=== PATIENT | male | born 1950 ===

== ENCOUNTER → 2021-09-15 10:51 | Outpatient (BNVA) | payer MEDICARE, SELFPAY | PROVIDERS: Family Provider Family Medicine; PCP Student in an Organized Health Care Education/Training Program; Visit Provider Urology | DX: R97.20 Elevated prostate specific antigen [PSA] (principal) | CPT/HCPCS: 84153 ==

== ENCOUNTER → 2021-09-22 10:02 | Outpatient (BNVA) | payer MEDICARE, SELFPAY | PROVIDERS: Family Provider Family Medicine; PCP Student in an Organized Health Care Education/Training Program; Visit Provider Urology | DX: R97.20 Elevated prostate specific antigen [PSA] (principal) | CPT/HCPCS: 81003; 99203 ==

== ENCOUNTER 2023-03-15 08:26 | Inpatient (IN) | payer MEDICARE, SELFPAY ==
[2023-03-15] VITALS (10 sets, daily range): BP systolic 121–164; BP diastolic 64–70; PULSE 56–64; RESP 15–18; TEMP 36.4–37.3; O2SAT 90–100; BMI 26.4; BMI 27.5
--- NOTE | 2023-03-15 08:34 | XR_ITS ---
WS: [id number] XR hip LT 2-3V wo/w pel* [id number] REASON FOR EXAM: FALL AND PAIN FINDINGS: Transcervical fracture of the femoral neck with minimal comminution. Mild cephalic displacement of th e femoral neck and shaft. Moderate osteoarthritis of the left hip. Superior and inferior pubic rami are intact. IMPRESSION: Transcervical fracture of the left hip as above.
--- NOTE | 2023-03-15 09:25 | ECG_ITS ---
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 Measurements Intervals Aubrey Rate: 58 P: 53 MS: 183 QRS: -9 QRSD: 114 T: 47 QT: 383 QTc: 376 Interpretive Statements SINUS BRADYCARDIA MODERATE INTRAVENTRICULAR CONDUCTION DELAY [110+ ms QRS DURATION] No previous ECG available for comparison Electronically Signed On 03-15-2023 19:52:06 MANAGER BUDGET by Majo Concecpion M.D. [id number]
--- NOTE | 2023-03-15 09:26 | ED_ITS ---
HPI - Extremity Problem 2 General: Chief complaint: ER Hold Stated complaint: FALL Time Seen by Provider: 03/15/23 08:30 Source: patient Mode of arrival: EMS History of Present Illness: 72-year-old male presents emergency room was walking slipped and fell on the ice complaining of left hip pain obvious deformity with shortening and external rotation. Brought in by EMS denies any other injury with the fall. MD Complaint: joint pain Onset (ago): minute(s) Pain Consistency: constant Location: left and lower extremity (Hip) Quality: sharp Radiation: distal Relieving factors: immobilization Exacerbating factors: range of motion and palpation Associated symptoms: Deny arthralgias, chest pain, fever(s), myalgias, rash or short of breath Review of Systems 2 Const: Denies: fever(s) or chills Card: Denies: chest pain Resp: Denies: dyspnea GI: Denies: abdominal pain : Denies: dysuria, urinary frequency or urinary urgency Musc: Reports: joint pain; Denies: neck pain or back pain Skin/Breast: Denies: rash PFSH ED 2 PFSH: Medical History Closed left hip fracture Coronary artery disease Tobacco dependency Hyperlipidemia Hypertension Surgical History Hx of cholecystectomy H/O heart artery stent Family History Father , AT AGE 75 Heart disease Mother , AT AGE 59 Cancer Social History Smoking and tobacco/nicotine status: current every day tobacco/nicotine user Alcohol intake: current Alcohol intake frequency: holidays/special occasions only Marital status: Current occupational status: employed Physical Exam 2 Const: GENERAL APPEARANCE: cooperative and comfortable O RIENTATION/CONSCIOUSNESS: Yes awake, Yes oriented to person, Yes oriented to place and Yes oriented to time HENMT: COMMON NORMALS: normocephalic, atraumatic and hearing grossly normal bilaterally HEAD & SCALP: normocephalic and atraumatic Resp: COMMON NORMALS: normal respiratory effort, No retractions, No use of accessory muscles and clear to auscultation bilaterally AUSCULTATION: clear to auscultation bilaterally Cardio: COMMON NORMALS: regular rate, regular rhythm and No murmurs present (Cardio) RATE: regular rate RHYTHM: regular rhythm GI: COMMON NORMALS: Soft to palpation and No hepatosplenomegaly present A USCULTATION: Yes normoactive bowel sounds PALPATION: Yes Soft to palpation, No Tenderness to palpation present (GI), No Guarding due to palpation present (GI) and Yes No hepatosplenomegaly present Extremity: COMMON NORMALS: normal to inspection, capillary refill normal, no clubbing, cyanosis or edema, no calf tenderness and no pedal edema LEFT LOWER EXTREMITY: Yes hip joint (External rotation and shortening) Left hip: Yes other Neuro: SENSORIUM/ORIENTATION: Yes oriented to person, Yes oriented to place and Yes oriented to time Skin: COMMON NORMALS: no rashes or lesions noted GENERAL SKIN EXAM: no rashes or lesions noted Course 2 Vital Signs: Vital signs: Vital Signs Temperature 99.4 F 03/18/23 12:00 Pulse Rate 71 03/18/23 12:00 Respiratory Rate 17 03/18/23 12:44 Blood Pressure 119/70 03/18/23 12:00 Pulse Oximetry 95 03/18/23 12:00 Oxygen Delivery Me thod Room Air 03/18/23 12:00 Oxygen Flow Rate 3 03/16/23 09:19 MDM - Extremity (Nontraumatic) Medical Decision Making Transcervical left hip fracture noted on x-ray. Patient will be admitted, orthopedic surgery consult hospitalist will be admitting. Pain medications given orders written initial preop labs ordered Medical Records I reviewed the patient's medical records. Lab Data I reviewed the patient's lab results. 03/18/23 03:30 03/18/23 03:30 Laboratory Results WBC 12.84 10^3/uL (3.29-11.43) H 03/15/23 09:34 RBC 5.02 10^6/uL (3.85-5.65) 03/15/23 09:34 Hgb 15.80 g/dL (11.27-16.99) 03/15/23 09:34 Hct 46.6 % (37-53) 03/15/23 09:34 MCV 92.8 fl (82-101) 03/15/23 09:34 MCH 31.5 pg (27-33) 03/15/23 09:34 MCHC 33.9 g/dL (30-55) 03/15/23 09:34 RDW 12.6 % (12.1-15.1) 03/15/23 09:34 Plt Count 219 10^3/cmm (157-399) 03/15/23 09:34 MPV 9.9 fL (7.4-10.4) 03/15/23 09:34 Neut % (Auto) 86.1 % 03/15/23 09:34 Lymph % (Auto) 8.5 % 03/15/23 09:34 [place] % (Auto) 4.5 % 03/15/23 09:34 Eos % (Auto) 0.2 % 03/15/23 09:34 Baso % (Auto) 0.3 % 03/15/23 09:34 Neut # (Auto) 11.05 10^3/uL (1.8-7.7) H 03/15/23 09:34 Lymph # (Auto) 1.1 10^3/uL (0.8-4.8) 03/15/23 09:34 [place] # (Auto) 0.6 10^3/uL (0.2-0.9) 03/15/23 09:34 Eos # (Auto) 0.0 10^3/uL (0.0-0.8) 03/15/23 09:34 Baso # (Auto) 0.0 10^3/uL (0.0-0.1) 03/15/23 09:34 Nucleated RBC % (auto) 0 % 03/15/23 09:34 Nucleated RBCs # 0.0 /100WBC 03/15/23 09:34 PT 12.90 SECONDS (12.1-14.9) 03/15/23 09:34 INR 0.94 (0.8-1.2) 03/15/23 09:34 APTT 31.8 SECONDS (23.9-36.7) 03/15/23 09:34 Sodium 138 mmol/L (136-145) 03/15/23 09:34 Potassium 4.2 mmol/L (3.5-5.1) 03/15/23 09:34 Chloride 104 mmol/L (98-107) 03/15/23 09:34 Carbon Dioxide 25 mmol/L (22-29) 03/15/23 09:34 Anion Gap 13.2 (5-19) 03/15/23 09:34 BUN 12 mg/dL (8-23) 03/15/23 09:34 Creatinine 1.4 mg/dL (0.7-1.2) H 03/15/23 09:34 GFR Calculation Not Reportable 03/15/23 09:34 Glucose 112 mg/dL (65-115) 03/15/23 09:34 Calculated Osmolality 287 mOsm/kg (285-295) 03/15/23 09:34 Calcium 9.1 mg/dL (8.5-10.5) 03/15/23 09:34 Total Bilirubin 0.5 mg/dL (0.15-1.2) 03/15/23 09:34 AST 16 U/L (0-40) 03/15/23 09:34 ALT 12 U/L (0-41) 03/15/23 09:34 Alkaline Phosphatase 88 U/L (40-130) 03/15/23 09:34 Total Protein 6.9 g/dL (6.6-8.7) 03/15/23 09:34 Albumin 3.8 g/dL (3.5-5.2) 03/15/23 09:34 Globulin 3.1 g/dL (1.3-4.6) 03/15/23 09:34 Urine Color Yellow (Yellow) 03/15/23 11:57 Urine Appearance Clear (CLEAR) 03/15/23 11:57 Urine pH 7 (5-7) 03/15/23 11:57 Ur Specific [place] 1.010 (1.005-1.030) 03/15/23 11:57 Urine Protein Neg (Negative) 03/15/23 11:57 Urine Glucose (UA) Norm (Normal) 03/15/23 11:57 Urine Ketones Negative (Negative) 03/15/23 11:57 Urine Blood Neg (Negative) 03/15/23 11:57 Urine Nitrate Negative (Negative) 03/15/23 11:57 Urine Bilirubin Neg (Negative) 03/15/23 11:57 Urine Urobilinogen Norm mg/dL (Negative) 03/15/23 11:57 Ur Leukocyte Esterase Negative (Negative) 03/15/23 11:57 All radiology interpretation(s) finalized by discharge Discharge Plan Discharge Patient Disposition: Admitted As Inpatient Admit Provider: Patrick Hernández Clinical Impression: Fracture of hip, Coronary artery disease Condition: Stable Discharge Diet: Cardiac Discharge Activity: Increase activity as tolerated Coding Level of Care Code ED Wood Pattern Maker for Ismael Mukherjee
--- NOTE | 2023-03-15 09:26 | XR_ITS ---
WS: [id number] XR chest 1V portable [id number] REASON FOR EXAM: dyspnea/cough FINDINGS: Mild tortuosity and ectasia of the thoracic aorta. Normal heart size. Calcified granulomatous disease in both hemithoraces. No active pulmonary parenchymal or pleural disease. Mild to moderate changes of degenerative spondylosis in the mid and lower thoracic spine. IMPRESSION: No acute chest abnormality.
[2023-03-15 09:49] LABS: Basophils % 0.3 %; Eosinophils % 0.2 %; Hematocrit 46.6 % (37-53); Lymphocytes # 1.1 10^3/uL (0.8-4.8); Lymphocytes % 8.5 %; Mean Corpuscular HGB Conc 33.9 g/dL (30-55); Mean Corpuscular Hemoglobin 31.5 pg (27-33); Mean Corpuscular Volume 92.8 fl (82-101); Mean Platelet Volume 9.9 fL (7.4-10.4); Monocytes # 0.6 10^3/uL (0.2-0.9); Monocytes % 4.5 %; Neutrophils # 11.05 10^3/uL (1.8-7.7); Neutrophils % 86.1 %; Nucleated Red Blood Cells % 0 %; Platelet Count 219 10^3/cmm (157-399); Red Blood Count 5.02 10^6/uL (3.85-5.65); Red Cell Distribution Width 12.6 % (12.1-15.1); White Blood Count 12.84 10^3/uL (3.29-11.43)
[2023-03-15 10:00] LABS: INR 0.94 (0.8-1.2)
[2023-03-15 10:01] LABS: Partial Thromboplastin Time 31.8 SECONDS (23.9-36.7)
[2023-03-15 10:08] LABS: Alanine Aminotransferase 12 U/L (0-41); Albumin Level 3.8 g/dL (3.5-5.2); Alkaline Phosphatase 88 U/L (40-130); Anion Gap 13.2 (5-19); Aspartate Amino Transferase 16 U/L (0-40); Blood Urea Nitrogen 12 mg/dL (8-23); Calcium 9.1 mg/dL (8.5-10.5); Carbon Dioxide 25 mmol/L (22-29); Chloride 104 mmol/L (98-107); Globulin 3.1 g/dL (1.3-4.6); Glucose 112 mg/dL (65-115); Osmolality Calculated 287 mOsm/kg (285-295); Potassium 4.2 mmol/L (3.5-5.1); Sodium 138 mmol/L (136-145); Total Bilirubin 0.5 mg/dL (0.15-1.2); Total Protein 6.9 g/dL (6.6-8.7)
[2023-03-15] MEDS: ondansetron 2 mg/ML SDV 2 mL 4 MG IVP (10:10)
[2023-03-15] MEDS: morphine 4 mg/mL SDV 1 mL IVP ×3 (10:10→19:43)
[2023-03-15] MEDS: D5-NS 0.45% + KCL 20 mEq 20 MEQ/1,000 ML BAG 100 MEQ IV ×2 (10:44→19:44)
--- NOTE | 2023-03-15 11:45 | P.HP_ITS ---
Providers/Chief Complaint 2 Admitting Physician: Patrick Hernández MD hospitalist Primary Care Provider: Arabella Lira NP Chief Complaint: FALL History of Present Illness Gideon Reyes is a 72 year old male from [facility] he reports he was on his way to [facility] when he slipped and fell on some ice. He denies any other significant injuries other than his hip, on the left side. He reports he tried to stand, and was able to briefly but then fell on the ice again. He was unable to stand after that. He reports no headache, nausea, neck pain, or back pain. He reports the hip is bothering him quite a bit. He would like something to drink. He denies any history of chest discomfort with exertion, and can do over 2 METS of activity without difficulty. He reports no prior anesthesia difficulties, or bleeding disorders. Review of Systems 2 Card: Denies: chest pain Resp: Denies: dyspnea GI: Denies: abdominal pain, hematochezia or melena Medications/Allergies Home Medications Medication Instructions Recorded Confirmed Last Taken Type lisinopril 10 mg tablet 10 mg PO DAILY 08/25/21 03/15/23 03/15/23 History meclizine 25 mg tablet 25 mg PO DAILY PRN Muscle Spasm 08/25/21 03/15/23 03/15/23 History simvastatin 40 mg tablet 40 mg PO QPM 08/25/21 03/15/23 03/14/23 History aspirin 81 mg tablet,delayed 81 mg PO DAILY 09/22/21 03/15/23 03/14/23 History release cholecalciferol (vitamin D3) 10 10 mcg PO DAILY 09/22/21 03/15/23 03/15/23 History mcg (400 unit) capsule vitamin B complex (B 1 tab PO DAILY 09/22/21 03/15/23 03/15/23 History Complex-Vitamin B12 tablet) oxybutynin chloride 5 mg tablet 5 mg PO TID 03/15/23 03/15/23 03/15/23 History Allergies Allergy/AdvReac Type Severity Reaction Status Date / Time No Known Allergies Allergy Unverified 09/22/21 10:15 PFSH Acute 2 PFSH: Medical History (Updated 03/15/23 @ 11:52 by Patrick Hernández MD) Coronary artery disease Tobacco dependency Hyperlipidemia Hypertension Surgical History Hx of cholecystectomy H/O heart artery stent Family History Father , AT AGE 75 Heart disease Mother , AT AGE 59 Cancer Social History Smoking and tobacco/nicotine status: current every day tobacco/nicotine user Alcohol intake: current Alcohol intake frequency: holidays/special occasions only Marital status: Current occupational status: employed Vitals/I&O/Wt Last Vital Signs Temp 98.4 F 03/15/23 08:29 Pulse 64 03/15/23 08:29 Resp 15 03/15/23 10:10 BP 164/66 03/15/23 08:29 Pulse Ox 100 03/15/23 10:10 O2 Del Method Room Air 03/15/23 08:29 Weight last 48 hrs Weight 90.718 kg Physical Exam 2 Narrative: General exam is a white male, conversant, pleasant, reporting pain HEENT: Atraumatic normocephalic. Oropharynx clear Neck is supple no lymphadenopathy thyromegaly Cardiovascular regular rate and rhythm with a 2 or 6 systolic murmur heard best at the left midsternal border Lungs clear Abdomen is soft nontender with positive bowel sounds. Small scars from laparoscopic cholecystectomy are noted exams deferred Extremities no cyanosis clubbing or edema, left leg is externally rotated and shortened. Distal cap refill intact. Skin no rash Neuro no obvious focal deficits. Data 03/15/23 09:34 03/15/23 09:34 Other Labs: LFTs are normal Urine is ordered but not done Chest x-ray shows no infiltrate, normal cardiac silhouette. I reviewed this personally. Hip x-ray demonstrates a left hip with a femoral neck fracture. I reviewed this personally. EKG which I reviewed demonstrates normal sinus rhythm, left axis deviation, and is otherwise without concern. A&P Assessment and plan (1) Closed left hip fracture: Bedrest initially N.p.o. after midnight for possible surgery tomorrow Orthopedic consultation Pain control (2) Coronary artery disease: Patient has history of coronary artery disease with intervention with stenting in the distant past Continue statin, aspirin (3) Tobacco dependency: Encourage abstaining from tobacco. Plan Hypertension. Hold his lisinopril as given DICKSON inhibitors in the perioperative period is associate with hypotension following surgery. Other medical problems as outlined in past medical history Full code. Lovenox and SCDs for DVT prophylaxis Attestations 2 Medical Necessity Statement*: Will need greater than 2 midnight stay for evaluation and treatment of left hip fracture, requiring surgery Diagnoses Closed left hip fracture S72.002A Coronary artery disease I25.10 Tobacco dependency F17.200 Time Spent (min) 47
[2023-03-15 12:06] LABS: Add Urine Microscopic? NO; Charge for UA Resulting for Rev
[2023-03-15 12:20] LABS: Bilirubin Urine Neg (Negative); Blood Urine Neg (Negative); Glucose Urine UA Norm (Normal); Ketones Urine Negative (Negative); Leukocyte Esterase Urine Negative (Negative); Nitrate Urine Negative (Negative); Protein Urine Neg (Negative); Urine Appearance Clear (CLEAR); Urine Color Yellow (Yellow); Urobilinogen Urine Norm (Negative); pH Urine 7 (5-7)
--- NOTE | 2023-03-15 12:57 | P.CONIM_ITS ---
Providers/Reason For Consult 2 Consulting Physician/Specialty*: Hospitalist Reason for Consult*: Left femoral neck fracture Attending Physician: Patrick Hernández MD Primary Care Provider: Arabella Lira NP History of Present Illness History of Present Illness Mane Reyes is a 72 year old male seen this morning and sustained a left femoral neck fracture. Patient had pain in the hip Review of Systems 2 Card: Denies: chest pain Resp: Denies: dyspnea GI: Denies: abdominal pain, hematochezia or melena Medications/Allergies Home Medications Medication Instructions Recorded Confirmed Last Taken Type lisinopril 10 mg tablet 10 mg PO DAILY 08/25/21 03/15/23 03/15/23 History meclizine 25 mg tablet 25 mg PO DAILY PRN Muscle Spasm 08/25/21 03/15/23 03/15/23 History simvastatin 40 mg tablet 40 mg PO QPM 08/25/21 03/15/23 03/14/23 History aspirin 81 mg tablet,delayed 81 mg PO DAILY 09/22/21 03/15/23 03/14/23 History release cholecalciferol (vitamin D3) 10 10 mcg PO DAILY 09/22/21 03/15/23 03/15/23 History mcg (400 unit) capsule vitamin B complex (B 1 tab PO DAILY 09/22/21 03/15/23 03/15/23 History Complex-Vitamin B12 tablet) oxybutynin chloride 5 mg tablet 5 mg PO TID 03/15/23 03/15/23 03/15/23 History Allergies Allergy/AdvReac Type Severity Reaction Status Date / Time No Known Allergies Allergy Unverified 09/22/21 10:15 Current Medications Generic Name Dose Route Start Last Admin Trade Name Freq PRN Reason Stop Dose Admin Potassium Chloride/Dextrose/Sod Cl 20 meq in 1,000 mls @ 100 mls/hr 03/15/23 09:47 03/15/23 10:44 D5-Ns 0.45% + Kcl 20 Meq IV 100 mls/hr .Q10H NIRAV Administration PFSH Acute 2 PFSH: Medical History (Updated 03/15/23 @ 12:58 by Rafita Laws DO) Coronary artery disease Tobacco dependency Hyperlipidemia Hypertension Surgical History Hx of cholecystectomy H/O heart artery stent Family History Father , AT AGE 75 Heart disease Mother , AT AGE 59 Cancer Social History Smoking and tobacco/nicotine status: current every day tobacco/nicotine user Alcohol intake: current Alcohol intake frequency: holidays/special occasions only Marital status: Current occupational status: employed Vitals/I&O/Wt Last Vital Signs Temp 98.4 F 03/15/23 08:29 Pulse 56 L 03/15/23 12:10 Resp 15 03/15/23 10:10 BP 150/64 03/15/23 12:10 Pulse Ox 96 03/15/23 12:10 O2 Del Method Room Air 03/15/23 12:10 Weight last 48 hrs Weight 200 lb Physical Exam 2 Narrative: Patient's left leg is shortened and externally rotated. Leg is neurovascular intact. Data 03/15/23 09:34 03/15/23 09:34 A&P Assessment and plan (1) Closed left hip fracture: Patient has a left closed hip fracture at the femoral neck. At this time we will plan to do a left hip hemiarthroplasty first in the morning. I had an open and honest discussion with the patient about the risks, benefits and alternatives to both surgical and nonsurgical treatment. The patient verbalized understanding of the inherent unpredictability associated with surgery. Risk of surgery were discussed including, but not limited to, infection, bleeding, temporary and permanent nerve damage, continued pain, stiffness, incomplete healing, need for revision surgery, blood clot and other complications. The patient verbalized understanding that there is spine is elective in nature and if they find any of these risks to be unacceptable then they should choose not to have the surgery. The patient verbalized understanding of these risks and elected to proceed with the surgery. Qualifiers: Encounter type: initial encounter Qualified Code(s): S72.002A - Fracture of unspecified part of neck of left femur, initial encounter for closed fracture Coding Level of Care Code Acute Code for Chg Fwd Diagnoses Closed fracture of left hip, initial encounter S72.002A Encounter type: initial encounter
[2023-03-15] MEDS: ceFAZolin 2,000 MG in sodium chloride 0.9% (plus) 50 ML 100 MG IV (14:24)
[2023-03-15] MEDS: enoxaparin 40 mg/0.4 mL Syringe SUBCUT (14:24)
[2023-03-15] MEDS: oxyCODONE 5 mg IR Tab/Cap PO ×2 (14:24→23:06)
[2023-03-15] MEDS: atorvastatin 40 mg Tablet PO (17:04)
[2023-03-16] VITALS (17 sets, daily range): BP systolic 100–144; BP diastolic 53–69; PULSE 62–87; RESP 10–23; TEMP 36.6–37.6; O2SAT 90–96
[2023-03-16] MEDS: D5-NS 0.45% + KCL 20 mEq 20 MEQ/1,000 ML BAG 100 MEQ IV (04:55)
[2023-03-16 05:29] LABS: Basophils % 0.2 %; Eosinophils % 0.4 %; Hematocrit 42.5 % (37-53); Lymphocytes # 1.2 10^3/uL (0.8-4.8); Lymphocytes % 11.9 %; Mean Corpuscular HGB Conc 33.6 g/dL (30-55); Mean Corpuscular Hemoglobin 31.2 pg (27-33); Mean Corpuscular Volume 92.8 fl (82-101); Mean Platelet Volume 10.3 fL (7.4-10.4); Monocytes # 0.8 10^3/uL (0.2-0.9); Monocytes % 7.9 %; Neutrophils # 8.17 10^3/uL (1.8-7.7); Neutrophils % 79.4 %; Nucleated Red Blood Cells % 0 %; Platelet Count 183 10^3/cmm (157-399); Red Blood Count 4.58 10^6/uL (3.85-5.65); Red Cell Distribution Width 12.5 % (12.1-15.1); White Blood Count 10.28 10^3/uL (3.29-11.43)
[2023-03-16 05:49] LABS: Anion Gap 13.4 (5-19); Blood Urea Nitrogen 10 mg/dL (8-23); Calcium 8.7 mg/dL (8.5-10.5); Carbon Dioxide 23 mmol/L (22-29); Chloride 106 mmol/L (98-107); Glucose 125 mg/dL (65-115); Osmolality Calculated 287 mOsm/kg (285-295); Potassium 4.4 mmol/L (3.5-5.1); Sodium 138 mmol/L (136-145)
--- NOTE | 2023-03-16 06:26 | W.PM.OPSUD ---
Surgery/Procedure H&P Update DATE OF PROCEDURE: March 16, 2023 DATE H&P PERFORMED: 03/15/23 H&P UPDATE INFORMATION: I have reviewed H&P completed within last 30 days, I have examined patient prior to procedure and No changes to prior documentation PREOP DIAGNOSIS: Hip fracture PLANNED PROCEDURE: Operation Date: 03/16/23 07:00 Proposed Procedures p Hemiarthroplasty Hip(Left) - Rafita Laws DO
[2023-03-16] MEDS: sodium chloride 0.9% 1,000 ML 30 ML IV (06:39)
[2023-03-16] MEDS: ceFAZolin 2,000 MG in sodium chloride 0.9% (plus) 50 ML 100 MG IV ×3 (06:58→22:28)
--- NOTE | 2023-03-16 07:05 | P.ANESASSM_ITS ---
Pre-Anesthetic Assessment Height/Weight: Height 1.85 m Weight 96.434 kg Temp Pulse Resp BP Pulse Ox O2 Del Method 99.6 F 69 17 144/69 90 Room Air 03/16/23 06:25 03/16/23 06:25 03/16/23 06:25 03/16/23 06:25 03/16/23 06:25 03/16/23 06:25 Preop Diagnosis: Hip fracture Operation Date: 03/16/23 07:00 Proposed Procedures p Hemiarthroplasty Hip(Left) - Rafita Laws DO Familial anesthetic complications: none Was Beta Cody taken within 24 hours: N/A Was Clonidine taken within 24 hours: N/A Last intake: Intake Last Liquid Date 03/15/23 Last Liquid Time 23:00 Last Solid Date 03/15/23 Social Tobacco and No alcohol Exam alert, oriented x 3 and regular rate & rhythm Airway Submandibular: within normal limits Cervical ROM: within normal limits Mallampati: Class II Dentition: chipped Pulmonary Chronic Obstructive Pulmonary Disease CV/HEM Coronary Artery Disease and Hypertension Anesthetic Plan ASA status: 3 Anesthesia: General Medications/Allergies Home Medications Medication Instructions Recorded Confirmed Last Taken Type lisinopril 10 mg tablet 10 mg PO DAILY 08/25/21 03/15/23 03/15/23 History meclizine 25 mg tablet 25 mg PO DAILY PRN Muscle Spasm 08/25/21 03/15/23 03/15/23 History simvastatin 40 mg tablet 40 mg PO QPM 08/25/21 03/15/23 03/14/23 History aspirin 81 mg tablet,delayed 81 mg PO DAILY 09/22/21 03/15/23 03/14/23 History release cholecalciferol (vitamin D3) 10 10 mcg PO DAILY 09/22/21 03/15/23 03/15/23 History mcg (400 unit) capsule vitamin B complex (B 1 tab PO DAILY 09/22/21 03/15/23 03/15/23 History Complex-Vitamin B12 tablet) oxybutynin chloride 5 mg tablet 5 mg PO TID 03/15/23 03/15/23 03/15/23 History Allergies Allergy/AdvReac Type Severity Reaction Status Date / Time No Known Allergies Allergy Unverified 09/22/21 10:15 Current Medications Generic Name Dose Route Start Last Admin Trade Name Freq PRN Reason Stop Dose Admin Atorvastatin Calcium 40 mg 03/15/23 18:00 03/15/23 17:04 Atorvastatin 40 Mg Tablet PO 40 mg QPM NIRAV Administration Potassium Chloride/Dextrose/Sod Cl 20 meq in 1,000 mls @ 100 mls/hr 03/15/23 09:47 03/16/23 04:55 D5-Ns 0.45% + Kcl 20 Meq IV 100 mls/hr .Q10H NIRAV Administration Sodium Chloride 1,000 mls @ 30 mls/hr 03/16/23 06:30 03/16/23 06:39 Sodium Chloride 0.9% IV 03/17/23 06:29 30 mls/hr .Q24H NIRAV Administration Morphine Sulfate 4 mg 03/15/23 09:47 03/15/23 19:43 Morphine 4 Mg/Ml Sdv 1 Ml IVP 4 mg Q4H PRN Administration SEVERE PAIN Oxycodone HCl 5 mg 03/15/23 11:53 03/15/23 23:06 Oxycodone 5 Mg Ir Tab/Cap PO 5 mg Q6H PRN Administration SEVERE PAIN PFSH Anesthesia Medical History (Updated 03/15/23 @ 12:58 by Rafita Laws DO) Coronary artery disease Tobacco dependency Hyperlipidemia Hypertension Surgical History Hx of cholecystectomy H/O heart artery stent Family History Father , AT AGE 75 Heart disease Mother , AT AGE 59 Cancer Social History Smoking and tobacco/nicotine status: current every day tobacco/nicotine user Alcohol intake: current Alcohol intake frequency: holidays/special occasions only Marital status: Current occupational status: employed Data Anesthesia 03/16/23 04:51 03/16/23 04:51 Short CBC 03/15/23 03/16/23 Range/Units 09:34 04:51 WBC 12.84 H 10.28 (3.29-11.43) 10^3/uL Hgb 15.80 14.30 (11.27-16.99) g/dL Hct 46.6 42.5 (37-53) % MCV 92.8 92.8 (82-101) fl Plt Count 219 183 (157-399) 10^3/cmm Neut % (Auto) 86.1 79.4 % Neut # (Auto) 11.05 H 8.17 H (1.8-7.7) 10^3/uL BMP 03/15/23 03/16/23 09:34 04:51 Sodium 138 138 Potassium 4.2 4.4 Chloride 104 106 Carbon Dioxide 25 23 BUN 12 10 Creatinine 1.4 H 1.2 Glucose 112 125 H Calcium 9.1 8.7 Liver Function 03/15/23 Range/Units 09:34 Total Bilirubin 0.5 (0.15-1.2) mg/dL AST 16 (0-40) U/L ALT 12 (0-41) U/L Alkaline Phosphatase 88 (40-130) U/L Albumin 3.8 (3.5-5.2) g/dL Urine 03/15/23 Range/Units 11:57 Urine Color Yellow (Yellow) Urine Appearance Clear (CLEAR) Urine pH 7 (5-7) Ur Specific [place] 1.010 (1.005-1.030) Urine Protein Neg (Negative) Urine Glucose (UA) Norm (Normal) Urine Ketones Negative (Negative) Urine Nitrate Negative (Negative) Urine Bilirubin Neg (Negative) Ur Leukocyte Esterase Negative (Negative) Coags 03/15/23 09:34 PT 12.90 INR 0.94 APTT 31.8 Cardiac Studies: 2 No Data to Display
[2023-03-16] MEDS: vancomycin 1,000 MG SDV 1000 MG INTRA-ARTI (07:48)
--- NOTE | 2023-03-16 08:30 | XR_ITS ---
WS: [id number] XR hip LT 1V wo/w pel [id number] REASON FOR EXAM: post op FINDINGS: Total left hip arthroplasty. The components of the prosthesis are intact and in proper position and alignment. IMPRESSION: Total left hip arthroplasty without abnormality.
--- NOTE | 2023-03-16 08:32 | P.OP_ITS ---
Operative Report Date of procedure: March 16, 2023 Pre-op diagnosis: Left femoral neck fracture Post-op diagnosis: same Procedure done: Left hip hemiarthroplasty Surgeon: Rafita Laws DO Estimated blood loss (mL): 50 Procedure: Left hip hemiarthroplasty Patient brought the operative suite after undergoing anesthesia placed in the lateral decubitus position. All areas impingement well-padded. Patient's prepped draped normal sterile fashion. Skin incision made over the left hip. IT band was cut cerebellar retractors were placed hip was rotated externally the abductors and capsule were taken down together anteriorly femoral neck was then identified and cut fingerbreadth above the lesser trochanter. The femoral head was then removed. It measured attention was then brought to the femur. A box closing machine operator was used to open up the canal superiorly. The canal finder was used fol lowed by lateralizer. The canal was broached to 7 size 7 stem was then inserted. Negative for neck length and the appropriate size head. This was then reduced. Overall directions wounds were irrigated abduction. With the capsule with Ethibond suture. IT band was closed with 0 Vicryl skin was closed with 2-0 Vicryl and bill. Sterile dressings were applied patient was transferred to this PACU in stable condition.
--- NOTE | 2023-03-16 10:18 | P.PN_ITS ---
Subjective 2 Subjective: Mane is directly postoperative. There were no complications with surgery. He denies any complaints. Currently his pain is controlled. Medications: Reviewed: Yes Vitals/I&O/Wt Last Vital Signs Temp 98.5 F 03/16/23 09:19 Pulse 69 03/16/23 09:19 Resp 15 03/16/23 09:19 BP 123/68 03/16/23 09:19 Pulse Ox 92 03/16/23 09:19 O2 Del Method Nasal Cannula 03/16/23 09:19 O2 Flow Rate 3 03/16/23 09:19 03/15/23 03/16/23 03/16/23 22:59 06:59 14:59 Intake Total 950 / 950 918.333 / 8915.695 7782 / 1050 Output Total 1150 / 1150 Balance -200 / -200 918.333 / 402.096 1754 / 1050 Weight last 48 hrs Weight 96.434 kg Weight 94.665 kg Weight 90.718 kg Physical Exam 2 Narrative: General exam no distress Neck is supple no lymphadenopathy thyromegaly Cardiovascular regular rate and rhythm with a 2 or 6 systolic murmur heard best at the left midsternal border Lungs clear Abdomen is soft nontender with positive bowel sounds. Small scars from laparoscopic cholecystectomy are noted exams Patterson noted Extremities no cyanosis clubbing or edema, left leg with dressing clean and dry Urinary Catheter Management: Patterson: Cath Placed During This Visit: yes Urinary Catheter Date of Insertion: 03/16/23 Urinary Catheter Time of Insertion: 07:15 Data 03/16/23 04:51 03/16/23 04:51 A&P Assessment and plan (1) Closed left hip fracture: Directly postoperative PT and OT consult Appreciate orthopedic intervention Pain control Qualifiers: Encounter type: initial encounter Qualified Code(s): S72.002A - Fracture of unspecified part of neck of left femur, initial encounter for closed fracture (2) Coronary artery disease: Patient has history of coronary artery disease with intervention with stenting in the distant past Continue statin, aspirin (3) Tobacco dependency: Encourage abstaining from tobacco. Plan Hypertension. Hold his lisinopril as given DICKSON inhibitors in the perioperative period is associate with hypotension following surgery. Other medical problems as outlined in past medical history Full code. Eliquis for DVT prophylaxis Attestations 2 Medical Necessity Statement*: Needs continued hospitalization for close monitoring, directly postoperative from hip fracture surgery. Diagnoses Closed fracture of left hip, initial encounter S72.002A Encounter type: initial encounter Coronary artery disease I25.10 Tobacco dependency F17.200 Time Spent (min) 24
--- NOTE | 2023-03-16 14:16 | ANE.PACU2 ---
Inpatient post-anesthesia follow up: Airway intact: Yes Vital signs: Temperature 97.9 F Pulse Rate 67 Respiratory Rate 14 Blood Pressure 124/65 Pulse Oximetry 90 Oxygen Delivery Me thod Nasal Cannula Oxygen Flow Rate 3 Fraction of Inspir ed Oxygen Hydration adequate: Yes Nausea and vomiting: No Pain level: 3 Mental status: Baseline
[2023-03-16] MEDS: oxyCODONE 5 mg IR Tab/Cap PO (15:02)
[2023-03-16] MEDS: atorvastatin 40 mg Tablet PO (17:44)
[2023-03-16] MEDS: apixaban 5 mg Tablet 2.5 MG PO (20:32)
[2023-03-17] VITALS (9 sets, daily range): BP systolic 116–149; BP diastolic 61–74; PULSE 68–85; RESP 15–18; TEMP 36.6–37.4; O2SAT 90–98
[2023-03-17 03:48] LABS: Basophils % 0.2 %; Eosinophils # 0.1 10^3/uL (0.0-0.8); Eosinophils % 0.4 %; Hematocrit 39.8 % (37-53); Lymphocytes # 1.2 10^3/uL (0.8-4.8); Lymphocytes % 7.7 %; Mean Corpuscular HGB Conc 34.2 g/dL (30-55); Mean Corpuscular Hemoglobin 31.6 pg (27-33); Mean Corpuscular Volume 92.3 fl (82-101); Mean Platelet Volume 10.1 fL (7.4-10.4); Monocytes # 1.2 10^3/uL (0.2-0.9); Monocytes % 7.7 %; Neutrophils # 13.41 10^3/uL (1.8-7.7); Neutrophils % 83.6 %; Nucleated Red Blood Cells % 0 %; Platelet Count 197 10^3/cmm (157-399); Red Blood Count 4.31 10^6/uL (3.85-5.65); Red Cell Distribution Width 12.4 % (12.1-15.1); White Blood Count 16.04 10^3/uL (3.29-11.43)
[2023-03-17 04:13] LABS: Anion Gap 14.3 (5-19); Blood Urea Nitrogen 15 mg/dL (8-23); Carbon Dioxide 22 mmol/L (22-29); Chloride 104 mmol/L (98-107); Glucose 122 mg/dL (65-115); Osmolality Calculated 284 mOsm/kg (285-295); Potassium 4.3 mmol/L (3.5-5.1); Sodium 136 mmol/L (136-145)
[2023-03-17] MEDS: oxyCODONE 5 mg IR Tab/Cap PO ×2 (05:49→14:00)
[2023-03-17] MEDS: ceFAZolin 2,000 MG in sodium chloride 0.9% (plus) 50 ML 100 MG IV (06:00)
--- NOTE | 2023-03-17 09:44 | P.PN_ITS ---
Subjective 2 Subjective: Patient sitting up at the bedside has very been walking doing well tells me he has insurance clearance to go to a assisted Vitals/I&O/Wt Last Vital Signs Temp 97.9 F 03/17/23 08:00 Pulse 73 03/17/23 08:00 Resp 16 03/17/23 08:00 BP 128/64 03/17/23 08:00 Pulse Ox 97 03/17/23 08:00 O2 Del Method Room Air 03/17/23 04:00 O2 Flow Rate 3 03/16/23 09:19 03/16/23 03/17/23 03/17/23 22:59 06:59 14:59 Intake Total 1290 / 2680 100 / 2780 240 / 240 Output Total 450 / 450 1350 / 1800 Balance 840 / 2230 -1250 / 980 240 / 240 Weight last 48 hrs Weight 220 lb 8 oz Weight 212 lb 9.6 oz Weight 208 lb 11.2 oz Physical Exam 2 Narrative: Patient is sitting at the bedside minimal pain wound clean dry and intact Urinary Catheter Management: Patterson: Cath Placed During This Visit: yes, but has since been removed by the nurse Reason for Continuing Indwelling Catheter: Decision to DC Catheter Urinary Catheter Date of Insertion: 03/16/23 Urinary Catheter Time of Insertion: 07:15 Date Urinary Catheter Removed: 03/17/23 Time Urinary Catheter Discontinued: 05:55 Data 03/17/23 03:32 03/17/23 03:32 A&P Assessment and plan (1) Encounter for postoperative care: Patient is postop day 1 for hemiarthroplasty Weight-bear as tolerated Discharge planning DVT prophylaxis with aspirin Attestations 2 Medical Necessity Statement*: Per primary service Coding Level of Care Code Acute Code for Chg Fwd Diagnoses Encounter for postoperative care Z48.89
--- NOTE | 2023-03-17 09:48 | P.PN_ITS ---
Subjective 2 Subjective: Mane reports he is doing okay. Pain is under control. Believes he needs to go to a nursing facility for rehabilitation. Medications: Reviewed: Yes Vitals/I&O/Wt Last Vital Signs Temp 97.9 F 03/17/23 08:00 Pulse 73 03/17/23 08:00 Resp 16 03/17/23 08:00 BP 128/64 03/17/23 08:00 Pulse Ox 97 03/17/23 08:00 O2 Del Method Room Air 03/17/23 04:00 O2 Flow Rate 3 03/16/23 09:19 03/16/23 03/17/23 03/17/23 22:59 06:59 14:59 Intake Total 1290 / 2680 100 / 2780 240 / 240 Output Total 450 / 450 1350 / 1800 Balance 840 / 2230 -1250 / 980 240 / 240 Weight last 48 hrs Weight 100.017 kg Weight 96.434 kg Weight 94.665 kg Physical Exam 2 Narrative: General exam no distress Neck is supple no lymphadenopathy thyromegaly Cardiovascular regular rate and rhythm with a 2 or 6 systolic murmur heard best at the left midsternal border Lungs clear Abdomen is soft nontender with positive bowel sounds. Patterson has been discontinued Extremities no cyanosis clubbing or edema, left leg with dressing clean and dry Urinary Catheter Management: Patterson: Cath Placed During This Visit: yes, but has since been removed by the nurse Reason for Continuing Indwelling Catheter: Decision to DC Catheter Urinary Catheter Date of Insertion: 03/16/23 Urinary Catheter Time of Insertion: 07:15 Date Urinary Catheter Removed: 03/17/23 Time Urinary Catheter Discontinued: 05:55 Data 03/17/23 03:32 03/17/23 03:32 A&P Assessment and plan (1) Closed left hip fracture: Postoperative day #1 status post ORIF left hip PT and OT consult Appreciate orthopedic intervention Pain control Slight increase in creatinine. Start low-dose fluids, stop anti-inflammatories, recheck lab tomorrow Qualifiers: Encounter type: initial encounter Qualified Code(s): S72.002A - Fracture of unspecified part of neck of left femur, initial encounter for closed fracture (2) Coronary artery disease: Patient has history of coronary artery disease with intervention with stenting in the distant past Continue statin, aspirin (3) Tobacco dependency: Encourage abstaining from tobacco. Plan Hypertension. Hold his lisinopril as given DICKSON inhibitors in the perioperative period is associate with hypotension following surgery. Other medical problems as outlined in past medical history Full code. Eliquis for DVT prophylaxis Attestations 2 Medical Necessity Statement*: Needs continued hospital stay for close follow-up following hip fracture repair Diagnoses Closed fracture of left hip, initial encounter S72.002A Encounter type: initial encounter Coronary artery disease I25.10 Tobacco dependency F17.200 Time Spent (min) 24
[2023-03-17] MEDS: apixaban 5 mg Tablet 2.5 MG PO ×2 (10:51→20:05)
[2023-03-17] MEDS: aspirin 81 mg EC Tablet PO (10:51)
[2023-03-17] MEDS: sodium chloride 0.9% 1,000 ML 50 ML IV (10:52)
[2023-03-17] MEDS: atorvastatin 40 mg Tablet PO (17:19)
[2023-03-18] VITALS (7 sets, daily range): BP systolic 113–135; BP diastolic 62–72; PULSE 71–85; RESP 16–18; TEMP 36.4–37.4; O2SAT 92–96
[2023-03-18 03:57] LABS: Basophils % 0.4 %; Eosinophils # 0.1 10^3/uL (0.0-0.8); Eosinophils % 0.6 %; Hematocrit 36.2 % (37-53); Lymphocytes # 1.5 10^3/uL (0.8-4.8); Lymphocytes % 13.3 %; Mean Corpuscular HGB Conc 34.3 g/dL (30-55); Mean Corpuscular Hemoglobin 31.5 pg (27-33); Mean Corpuscular Volume 91.9 fl (82-101); Mean Platelet Volume 10.5 fL (7.4-10.4); Monocytes # 1.1 10^3/uL (0.2-0.9); Monocytes % 9.3 %; Neutrophils # 8.61 10^3/uL (1.8-7.7); Neutrophils % 75.8 %; Nucleated Red Blood Cells % 0 %; Platelet Count 186 10^3/cmm (157-399); Red Blood Count 3.94 10^6/uL (3.85-5.65); Red Cell Distribution Width 12.5 % (12.1-15.1); White Blood Count 11.35 10^3/uL (3.29-11.43)
[2023-03-18 04:27] LABS: Anion Gap 13.9 (5-19); Blood Urea Nitrogen 20 mg/dL (8-23); Calcium 8.5 mg/dL (8.5-10.5); Carbon Dioxide 23 mmol/L (22-29); Chloride 103 mmol/L (98-107); Glucose 106 mg/dL (65-115); Osmolality Calculated 285 mOsm/kg (285-295); Potassium 3.9 mmol/L (3.5-5.1); Sodium 136 mmol/L (136-145)
[2023-03-18] MEDS: oxyCODONE 5 mg IR Tab/Cap PO ×2 (06:13→12:44)
--- NOTE | 2023-03-18 06:49 | P.PN_ITS ---
Subjective 2 Subjective: Patient controlled doing well. Stated that he is going to correction. Vitals/I&O/Wt Last Vital Signs Temp 97.6 F 03/18/23 04:00 Pulse 77 03/18/23 04:00 Resp 16 03/18/23 06:13 BP 132/72 03/18/23 04:00 Pulse Ox 92 03/18/23 04:00 O2 Del Method Room Air 03/18/23 04:00 O2 Flow Rate 3 03/16/23 09:19 03/17/23 03/17/23 03/18/23 14:59 22:59 06:59 Intake Total 480 / 480 Output Total 500 / 500 200 / 700 Balance 480 / 480 -500 / -20 -200 / -220 Weight last 48 hrs Weight 220 lb 4 oz Weight 220 lb 8 oz Physical Exam 2 Narrative: Sitting up bedside wound clean dry intact Urinary Catheter Management: Patterson: Cath Placed During This Visit: yes, but has since been removed by the nurse Reason for Continuing Indwelling Catheter: Decision to DC Catheter Urinary Catheter Date of Insertion: 03/16/23 Urinary Catheter Time of Insertion: 07:15 Date Urinary Catheter Removed: 03/17/23 Time Urinary Catheter Discontinued: 05:55 Data 03/18/23 03:30 03/18/23 03:30 A&P Assessment and plan (1) Closed left hip fracture: Status post hip hemiarthroplasty Okay to discharge from orthopedic standpoint Follow-up in clinic in 2 weeks. Qualifiers: Encounter type: initial encounter Qualified Code(s): S72.002A - Fracture of unspecified part of neck of left femur, initial encounter for closed fracture Attestations 2 Medical Necessity Statement*: Per primary service Coding Level of Care Code Acute Code for Chg Fwd Diagnoses Closed fracture of left hip, initial encounter S72.002A Encounter type: initial encounter
--- NOTE | 2023-03-18 09:08 | PC.SOCIAL ---
IMM Update pg 2 of IMM updated and reviewed w/ patient. Copy provided and copy dated, initialed and placed in chart.
[2023-03-18] MEDS: apixaban 5 mg Tablet 2.5 MG PO (09:36)
[2023-03-18] MEDS: aspirin 81 mg EC Tablet PO (09:36)
[2023-03-18] MEDS: sodium chloride 0.9% 1,000 ML 50 ML IV (09:38)
--- NOTE | 2023-03-18 12:14 | PM.DCS ---
Discharge Providers Date of Admission: 03/15/23 12:18 Date of Discharge: March 18, 2023 Attending Provider at Admission: Patrick Hernández MD Attending Provider at Discharge: Patrick Hernández MD Primary Care Provider: Arabella Lira NP Diagnoses at Discharge Discharge Diagnosis (1) Closed left hip fracture: Status: Acute Qualifiers: Encounter type: initial encounter Qualified Code(s): S72.002A - Fracture of unspecified part of neck of left femur, initial encounter for closed fracture Reason for Visit Reason for Visit: FALL Hospital Course Hospital Course Mane is a 72-year-old white male who presented after mechanical fall to the emergency department with a hip fracture, on the left. He underwent surgery on the March 16, without complications. He was monitored closely in recovery and did quite well, being ready for discharge to skilled care on March 18. Discharge hemoglobin 12.4. Patient was given opportunity to ask questions and agreed with the plan. Physical Exam Narrative: General exam no distress Neck is supple Cardiovascular regular rate and rhythm Lungs clear Abdomen soft Extremities no sinus clubbing edema, left hip clean and dry. Urinary Catheter Management: Patterson: Cath Placed During This Visit: yes, but has since been removed by the nurse Reason for Continuing Indwelling Catheter: Decision to DC Catheter Urinary Catheter Date of Insertion: 03/16/23 Urinary Catheter Time of Insertion: 07:15 Date Urinary Catheter Removed: 03/17/23 Time Urinary Catheter Discontinued: 05:55 Discharge Data Studies Completed and Pending Completed Studies During Hospitalization Category Date Time Status XR chest 1V portable [id number] Stat Exams 03/15/23 09:26 Completed XR hip LT 1V wo/w pel [id number] Routine Exams 03/16/23 08:30 Completed XR hip LT 2-3V wo/w pel* [id number] Stat Exams 03/15/23 08:34 Completed Pending at discharge Category Date Time Status COVID [SARS Covid-2 Antigen] Routine Lab 03/18/23 11:55 Received Laboratory Results WBC 11.35 10^3/uL (3.29-11.43) 03/18/23 03:30 RBC 3.94 10^6/uL (3.85-5.65) 03/18/23 03:30 Hgb 12.40 g/dL (11.27-16.99) 03/18/23 03:30 Hct 36.2 % (37-53) L 03/18/23 03:30 MCV 91.9 fl (82-101) 03/18/23 03:30 MCH 31.5 pg (27-33) 03/18/23 03:30 MCHC 34.3 g/dL (30-55) 03/18/23 03:30 RDW 12.5 % (12.1-15.1) 03/18/23 03:30 Plt Count 186 10^3/cmm (157-399) 03/18/23 03:30 MPV 10.5 fL (7.4-10.4) H 03/18/23 03:30 Neut % (Auto) 75.8 % 03/18/23 03:30 Lymph % (Auto) 13.3 % 03/18/23 03:30 [place] % (Auto) 9.3 % 03/18/23 03:30 Eos % (Auto) 0.6 % 03/18/23 03:30 Baso % (Auto) 0.4 % 03/18/23 03:30 Neut # (Auto) 8.61 10^3/uL (1.8-7.7) H 03/18/23 03:30 Lymph # (Auto) 1.5 10^3/uL (0.8-4.8) 03/18/23 03:30 [place] # (Auto) 1.1 10^3/uL (0.2-0.9) H 03/18/23 03:30 Eos # (Auto) 0.1 10^3/uL (0.0-0.8) 03/18/23 03:30 Baso # (Auto) 0.0 10^3/uL (0.0-0.1) 03/18/23 03:30 Nucleated RBC % (auto) 0 % 03/18/23 03:30 Nucleated RBCs # 0.0 /100WBC 03/18/23 03:30 PT 12.90 SECONDS (12.1-14.9) 03/15/23 09:34 INR 0.94 (0.8-1.2) 03/15/23 09:34 APTT 31.8 SECONDS (23.9-36.7) 03/15/23 09:34 Sodium 136 mmol/L (136-145) 03/18/23 03:30 Potassium 3.9 mmol/L (3.5-5.1) 03/18/23 03:30 Chloride 103 mmol/L (98-107) 03/18/23 03:30 Carbon Dioxide 23 mmol/L (22-29) 03/18/23 03:30 Anion Gap 13.9 (5-19) 03/18/23 03:30 BUN 20 mg/dL (8-23) 03/18/23 03:30 Creatinine 1.2 mg/dL (0.7-1.2) 03/18/23 03:30 GFR Calculation Not Reportable 03/18/23 03:30 Glucose 106 mg/dL (65-115) 03/18/23 03:30 Calculated Osmolality 285 mOsm/kg (285-295) 03/18/23 03:30 Calcium 8.5 mg/dL (8.5-10.5) 03/18/23 03:30 Total Bilirubin 0.5 mg/dL (0.15-1.2) 03/15/23 09:34 AST 16 U/L (0-40) 03/15/23 09:34 ALT 12 U/L (0-41) 03/15/23 09:34 Alkaline Phosphatase 88 U/L (40-130) 03/15/23 09:34 Total Protein 6.9 g/dL (6.6-8.7) 03/15/23 09:34 Albumin 3.8 g/dL (3.5-5.2) 03/15/23 09:34 Globulin 3.1 g/dL (1.3-4.6) 03/15/23 09:34 Urine Color Yellow (Yellow) 03/15/23 11:57 Urine Appearance Clear (CLEAR) 03/15/23 11:57 Urine pH 7 (5-7) 03/15/23 11:57 Ur Specific [place] 1.010 (1.005-1.030) 03/15/23 11:57 Urine Protein Neg (Negative) 03/15/23 11:57 Urine Glucose (UA) Norm (Normal) 03/15/23 11:57 Urine Ketones Negative (Negative) 03/15/23 11:57 Urine Blood Neg (Negative) 03/15/23 11:57 Urine Nitrate Negative (Negative) 03/15/23 11:57 Urine Bilirubin Neg (Negative) 03/15/23 11:57 Urine Urobilinogen Norm mg/dL (Negative) 03/15/23 11:57 Ur Leukocyte Esterase Negative (Negative) 03/15/23 11:57 Vitals Last Vital Signs Temp 99.4 F 03/18/23 12:00 Pulse 71 03/18/23 12:00 Resp 18 03/18/23 12:00 BP 119/70 03/18/23 12:00 Pulse Ox 95 03/18/23 12:00 O2 Del Method Room Air 03/18/23 12:00 O2 Flow Rate 3 03/16/23 09:19 Discharge Plan Discharge Patient Disposition: Xfer SNF Condition: Stable Prescriptions: New oxycodone 5 mg Tablet 5 mg PO Q6H PRN (Reason: Severe Pain) Qty: 20 0RF Eliquis 5 mg Tablet 2.5 mg PO BID@0900,2100 Qty: 60 0RF Continued aspirin 81 mg tablet,delayed release (DR/EC) 81 mg PO DAILY cholecalciferol (vitamin D3) 10 mcg (400 unit) capsule 10 mcg PO DAILY vitamin B complex [B Complex-Vitamin B12] Tablet 1 tab PO DAILY lisinopril 10 mg tablet 10 mg PO DAILY simvastatin 40 mg tablet 40 mg PO QPM Discontinued meclizine 25 mg tablet 25 mg PO DAILY PRN (Reason: Muscle Spasm) oxybutynin chloride 5 mg Tablet 5 mg PO TID Discharge Orders: Discharge Order (Routine); Ordered 03/18/23 Ordered By: Patrick Hernández Referrals: [facility] [Outside] - 1-3 days Arabella Lira NP [Primary Care Provider] - Discharge Diet: Cardiac Discharge Activity: Increase activity as tolerated Patient Instructions: Opioid Safety Activity Restrictions/Additional Instructions: You are being discharged from the hospital today during which time you have been under the care of Dr. Laws. You had a femoral neck fracture. You were treated for this injury with hip hemiarthroplasty. You may resume you normal diet (including any special diets as directed by your primary doctor) as well as your home medications. You should follow up with you primary doctor if you have any questions regarding medication you took prior to your stay in the hospital. You may take your pain medication as prescribed. After the first few days, take your pain medication as needed. Do not drive or drink alcohol while taking your pain medication. Your injury may increase your risk of developing a blood clot,or DVT, in your arm or leg. This could potentially dislodge and travel to your lungs and become a life threatening condition called apulmonary embolus,or PE. You have been prescribed aspirin to be taken to prevent this. Frequent movement of the legs will also help prevent this from occurring. If you develop any new or worsening cough, chestpain, bloody sputum or shortness of breath, call 911 or go to the EmergencyRoom. Always keep your surgical incision/dressing clean and dry. If you experience increasing pain at your incision site, redness, swelling, increasing discharge, foul odors, or fevers (greater than 100.4), night sweats or chills you should call the office at the above number. If you feel this is an emergency you should be evaluated in the Emergency Department of a nearby hospital. Orthopedic Patient Instructions Summary: Weight Bearing: Weight-bear as tolerated Activity: As tolerated. Diet: Regular. Wound Care: Keep dressing clean and dry. Anticoagulation: Aspirin Pain Medication: Take only as needed. Ice, rest and elevation will be of great benefit. Please plan to follow-up [facility] Laws in 2 weeks. You will need to call the clinic [phone] to schedule this visit. Thank you far allowing me to participate in your care. Do not hesitate to call the office with any questions or concerns. Take all medicine as prescribed Follow-up with primary care provider at detention facility Discharge Attestations Time Spent in Discharge Care*: greater than 30 min Quality Metrics Clinical Quality Measures [ No reported AMI, CVA or VTE this stay] Coding Level of Care Code 21410 Total time (in minutes) for Discharge: 33 Diagnoses Closed fracture of left hip, initial encounter S72.002A Encounter type: initial encounter
[2023-03-18 12:25] LABS: SARS Covid-2 Antigen negative (Negative)
--- NOTE | 2023-03-18 12:29 | PC.NURSE ---
Discharge order is in. This nurse is awaiting confirmation to call report from case management.
--- NOTE | 2023-03-18 13:36 | PC.NURSE ---
Report given to Vaishali at [facility].
== END 2023-03-18 14:45 | disposition skilled nursing facility (03) | DRG 522 ==
LOC: ER 11:19 → MEDSURG 12:19
PROVIDERS: Orthopaedic Surgery; Admitting Provider Internal Medicine; Emergency Provider Family Medicine; PCP Nurse Practitioner Family; Visit Provider Internal Medicine
PROC: 0SRS0JZ Replacement of Left Hip Joint, Femoral Surface with Synthetic Substitute, Open Approach (ICD-10-PCS; CPT 27125; principal; 2023-03-16 07:00)
DX: S72.032A Displaced midcervical fracture of left femur, initial encounter for closed fracture (principal); W00.0XXA Fall on same level due to ice and snow, initial encounter; Y93.01 Activity, walking, marching and hiking; Y92.89 Other specified places as the place of occurrence of the external cause; I25.10 Atherosclerotic heart disease of native coronary artery without angina pectoris; Z95.5 Presence of coronary angioplasty implant and graft; F17.210 Nicotine dependence, cigarettes, uncomplicated; E78.5 Hyperlipidemia, unspecified; I10 Essential (primary) hypertension
CPT/HCPCS: 36415; 51702; 71045; 73501; 73502; 80048; 80053; 81003; 85025; 85610; 85730; 87426; 93005; 96372; 97116; 97161; 97165; 97530; 97535; 99285; C1776; J0131; J0690; J1100; J1170; J1650; J2270; J2371; J2405; J2704; J2710; J3010; J3370; J3490; J7030; P9045

== ENCOUNTER → 2023-03-29 14:30 | Outpatient (BNVA) | payer MEDICARE, SELFPAY | PROVIDERS: PCP Nurse Practitioner Family; Visit Provider Orthopaedic Surgery | DX: S72.002D Fracture of unspecified part of neck of left femur, subsequent encounter for closed fracture with routine healing; X58.XXXD Exposure to other specified factors, subsequent encounter; Z96.642 Presence of left artificial hip joint | CPT/HCPCS: 73502; 99024 ==

== ENCOUNTER → 2023-04-26 14:00 | Outpatient (BNVA) | payer MEDICARE, SELFPAY | PROVIDERS: PCP Nurse Practitioner Family; Visit Provider Orthopaedic Surgery | DX: S72.002D Fracture of unspecified part of neck of left femur, subsequent encounter for closed fracture with routine healing (principal); X58.XXXD Exposure to other specified factors, subsequent encounter | CPT/HCPCS: 73502; 99024 ==

== ENCOUNTER → 2023-06-07 13:09 | Outpatient (BNVA) | payer MEDICARE, SELFPAY | PROVIDERS: PCP Nurse Practitioner Family; Visit Provider Orthopaedic Surgery | DX: S72.002D Fracture of unspecified part of neck of left femur, subsequent encounter for closed fracture with routine healing (principal); X58.XXXD Exposure to other specified factors, subsequent encounter | CPT/HCPCS: 73502; 99024 ==